=== PATIENT | female | born 1995 | race African-American/Black ===

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

== ENCOUNTER 2017-05-23 18:07 | Emergency (ER) | payer SELFPAY ==
[2017-05-23 18:13] VITALS: BMI 16.8
--- NOTE | 2017-05-23 18:55 | PDOC ---
History of Present Illness - General Chief Complaint: Pain Stated Complaint: STOMACH PAIN Time Seen by Provider: 05/23/17 18:54 - History of Present Illness Initial Comments: 21 year old previous healthy female presenting with some abdominal pain and nausea for the past few days. States that she had some light nausea and starting a few days back that eventually lead to some light epigastric pain. The epigastric pain is not associated with food or position and was recalcitrant to two Tylenol. Did not attempt any Maalox, peptobismal or antacids. Denies fevers, chills, nausea, vomiting, diarrhea, constipation, or any other sick symptoms or sick contacts. 05/23/17 19:06 Past History - Past Medical History Allergies/Adverse Reactions: Allergies Allergy/AdvReac Type Severity Reaction Status Date / Time No Known Allergies Allergy Verified 05/23/17 18:13 Home Medications: Ambulatory Orders No Home Medications 0 dose .ROUTE UTDICT 04/19/12 Mag Hydrox/Al Hydrox/Simeth [Mylanta Suspension -] 30 ml PO Q6H PRN #1 bottle Other medical history: NONE - Suicide/Smoking/Psychosocial Hx Smoking Status: No Smoking History: Never smoked Number of Cigarettes Smoked Daily: 0 Hx Alcohol Use: No Drug/Substance Use Hx: No Review of Systems - Review of Systems Constitutional: No: Chills, Diaphoresis HEENTM: No: Blurred Vision, Recent change in vision Respiratory: No: Cough Cardiac (ROS): No: Chest Pain ABD/GI: No: Nausea, Vomiting : No: Burning, Dysuria Musculoskeletal: No: Back Pain Integumentary: No: Bruising Neurological: No: Headache, Numbness *Physical Exam - Vital Signs Last Vital Signs Temp Pulse Resp BP Pulse Ox 99.5 F 105 H 20 139/54 100 05/23/17 18:10 05/23/17 18:10 05/23/17 18:10 05/23/17 18:10 05/23/17 18:10 - Physical Exam General Appearance: Yes: Nourished, Appropriately Dressed. No: Apparent Distress HEENT: positive: EOMI, BETH, Normal Voice Neck: positive: Trachea midline, Normal Thyroid, Supple. negative: Tender, Rigid Respiratory/Chest: positive: Lungs Clear, Normal Breath Sounds. negative: Chest Tender, Respiratory Distress, Accessory Muscle Use Cardiovascular: positive: Regular Rhythm, Regular Rate Gastrointestinal/Abdominal: positive: Normal Bowel Sounds, Flat, Soft. negative : Tender Musculoskeletal: positive: Normal Inspection. negative: CVA Tenderness Extremity: positive: Normal Capillary Refill, Normal Inspection, Normal Range of Motion Integumentary: positive: Normal Color, Dry, Warm Neurologic: positive: Fully Oriented, Alert, Normal Mood/Affect Medical Decision Making - Medical Decision Making 21 year old healthy female with vague abdominal discomfort and nausea over the past few days. U preg and UA negative for or any pathology. Patient feeling slightly better after maalox and pepcid. Will DC with over the counter medication instructions. 05/23/17 20:25 *DC/Admit/Observation/Transfer Diagnosis at time of Disposition: Nausea alone - Discharge Dispostion Disposition: HOME Condition at time of disposition: Improved Admit: No - Prescriptions Prescriptions: Mag Hydrox/Al Hydrox/Simeth [Mylanta Suspension -] 30 ml PO Q6H PRN #1 bottle PRN Reason: Nausea - Patient Instructions Additional Instructions: Your stomach problems are most likely due to mild irritation of the lining in your stomach. Please take maalox as needed and maintain a healthy diet. Please return to the ED if you have pain out of control despite use of tylenol and maalox or if you have trouble keeping food down for an extended period of time.
[2017-05-23] MEDS ORDERED: MAG HYDROX/AL HYDROX/SIMETH 30 ML UNIT-DOSE CUP PO ONE (19:03)
--- NOTE | 2017-05-23 19:07 | PDOC ---
Attending Attestation - Resident Resident Name: Shamar Hernandez - ED Attending Attestation I have performed the following: I have examined & evaluated the patient, The case was reviewed & discussed with the resident, I agree w/resident's findings & plan, Exceptions are as noted - HPI HPI: 21 yo F no significant past medical history presents with epigastric abdominal pain. She denies nausea, vomiting, diarrhea, fever. No known bad food ingestions. No previous similar symptoms. She did not take anything for her symptoms. - Physicial Exam PE: GENERAL: Awake, alert, and fully oriented, in no acute distress HEAD: No signs of trauma EYES: PERRLA, EOMI, sclera anicteric, conjunctiva clear ENT: Auricles normal inspection, hearing grossly normal, nares patent, oropharynx clear without exudates. Moist mucosa NECK: Normal ROM, supple, no lymphadenopathy, JVD, or masses LUNGS: Breath sounds equal, clear to auscultation bilaterally. No wheezes, and no crackles HEART: Regular rate and rhythm, normal S1 and S2, no murmurs, rubs or gallops ABDOMEN: Soft, +mild epigastric tenderness, normoactive bowel sounds. No guarding, no rebound. No masses EXTREMITIES: Normal range of motion, no edema. No clubbing or cyanosis. No cords, erythema, or tenderness NEUROLOGICAL: Cranial nerves II through XII grossly intact. Normal speech, normal gait SKIN: Warm, Dry, normal turgor, no rashes or lesions noted. - Medical Decision Making Pt presents with upper abdominal pain. No significant findings on exam, mild epigastric and mid-abdominal tenderness. Stable for DC home.
[2017-05-23 19:08] LABS: URINE APPEARANCE CLEAR; URINE BILIRUBIN NEGATIVE (NEGATIVE); URINE BLOOD NEGATIVE (NEGATIVE); URINE COLOR LTYELLOW; URINE GLUCOSE (UA) NEGATIVE (NEGATIVE); URINE KETONE NEGATIVE (NEGATIVE); URINE NITRITE NEGATIVE (NEGATIVE); URINE PROTEIN NEGATIVE (NEGATIVE); URINE UROBILINOGEN NEGATIVE mg/dL (0.2-1.0)
[2017-05-23] MEDS ORDERED: BISMUTH SUBSALICYLATE 262 MG TAB.CHEW PO ONE (19:08)
[2017-05-23] MEDS ORDERED: FAMOTIDINE 20 MG/50 ML IVPB 50 ML IVPB SCH ×2 (19:15→22:00)
[2017-05-23 19:21] VITALS: TEMP 99.1
[2017-05-23] MEDS ORDERED: MAG HYDROX/AL HYDROX/SIMETH 30 ML UNIT-DOSE CUP ONE (19:28)
[2017-05-23 21:18] VITALS: BP 102/64; PULSE 84
[2017-05-23 22:30] LABS: URINE LEUK ESTERASE Negative (NEGATIVE)
== END 2017-05-23 21:18 | disposition home or self-care (01) ==
LOC: JER 18:07
DX: R11.0 Nausea (principal)
CPT/HCPCS: 81003; 84703; 99282-25

== ENCOUNTER 2017-06-14 12:46 | Emergency (ER) | payer OTHER ==
[2017-06-14 13:03] VITALS: TEMP 98.3; BMI 15.6
[2017-06-14] MEDS ORDERED: RANITIDINE HCL 150 MG TABLET (FP) PO ONE (14:02)
[2017-06-14] MEDS ORDERED: BISMUTH SUBSALICYLATE 524 MG/30 ML UD PO ONE (14:02)
--- NOTE | 2017-06-14 14:03 | PDOC ---
History of Present Illness - General Chief Complaint: Chest Pain Stated Complaint: CHEST PAIN,BURPING Time Seen by Provider: 06/14/17 13:25 History Source: Patient Exam Limitations: No Limitations - History of Present Illness Initial Comments: 06/14/17 14:27 lightheadedness Past History - Past Medical History Allergies/Adverse Reactions: Allergies Allergy/AdvReac Type Severity Reaction Status Date / Time No Known Allergies Allergy Verified 06/05/17 16:57 Home Medications: Ambulatory Orders No Home Medications 0 dose .ROUTE UTDICT 04/19/12 COPD: No - Suicide/Smoking/Psychosocial Hx Smoking Status: No Smoking History: Never smoked Number of Cigarettes Smoked Daily: 0 Hx Alcohol Use: No Drug/Substance Use Hx: No *Physical Exam - Vital Signs Last Vital Signs Temp Pulse Resp BP Pulse Ox 98.3 F 104 H 19 118/86 99 06/14/17 13:00 06/14/17 13:00 06/14/17 13:00 06/14/17 13:00 06/14/17 13:00 *DC/Admit/Observation/Transfer - Referrals Referrals: Khari Post MD [Primary Care Provider] - - Patient Instructions - Post Discharge Activity
[2017-06-14] MEDS ORDERED: RANITIDINE HCL 150 MG TABLET (FP) ONE ×2 (14:10→16:21)
--- NOTE | 2017-06-14 16:44 | PDOC ---
History of Present Illness - General History Source: Patient Exam Limitations: No Limitations - History of Present Illness Initial Comments: 06/14/17 16:44 The patient is a 21 year old female, with no significant past medical history who presents to the emergency department with chest pain for about 2 days. The patient describes her pain as a sharp and tight sensation. She denies any LE pain. She denies any recent injury or trauma. She denies recent fevers, chills , headache or dizziness. She denies recent nausea, vomit, diarrhea or constipation. She denies recent dysuria, frequency, urgency or hematuria. She denies recent shortness of breath. No history or family history of blood clots. Allergies: NKA Past surgical history: None reported. Social history: Nonsmoker. Denies EtOH use and recreational drug use. PCP: <Uvaldo Ortega - Last Filed: 06/14/17 16:44> - General History Source: Patient Exam Limitations: No Limitations <Huyen Rosado - Last Filed: 06/14/17 18:32> - General Chief Complaint: Chest Pain Stated Complaint: CHEST PAIN,BURPING Time Seen by Provider: 06/14/17 13:25 Past History <Uvaldo Ortega - Last Filed: 06/14/17 16:44> - Past Medical History COPD: No - Suicide/Smoking/Psychosocial Hx Smoking Status: No Smoking History: Never smoked Number of Cigarettes Smoked Daily: 0 Hx Alcohol Use: No Drug/Substance Use Hx: No <Huyen Rosado - Last Filed: 06/14/17 18:32> - Past Medical History Allergies/Adverse Reactions: Allergies Allergy/AdvReac Type Severity Reaction Status Date / Time No Known Allergies Allergy Verified 06/05/17 16:57 Home Medications: Ambulatory Orders No Home Medications 0 dose .ROUTE UTDICT 04/19/12 Review of Systems - Review of Systems Able to Perform ROS?: Yes Comments:: 06/14/17 16:44 GENERAL/CONSTITUTIONAL: No fever or chills. No weakness. HEAD, EYES, EARS, NOSE AND THROAT: No change in vision. No ear pain or discharge. No sore throat. CARDIOVASCULAR: +chest pain No shortness of breath. RESPIRATORY: No cough, wheezing, or hemoptysis. GASTROINTESTINAL: No nausea, vomiting, diarrhea or constipation. GENITOURINARY: No dysuria, frequency, or change in urination. MUSCULOSKELETAL: No joint or muscle swelling or pain. No neck or back pain. SKIN: No rash NEUROLOGIC: No headache, vertigo, loss of consciousness, or change in strength/ sensation. ENDOCRINE: No increased thirst. No abnormal weight change. HEMATOLOGIC/LYMPHATIC: No anemia, easy bleeding, or history of blood clots. ALLERGIC/IMMUNOLOGIC: No hives or skin allergy. <Uvaldo Ortega - Last Filed: 06/14/17 16:44> *Physical Exam - Vital Signs Last Vital Signs Temp Pulse Resp BP Pulse Ox 98.3 F 104 H 19 118/86 99 06/14/17 13:00 06/14/17 13:00 06/14/17 13:00 06/14/17 13:00 06/14/17 13:00 - Physical Exam Comments: 06/14/17 16:44 GENERAL: Awake, alert, and fully oriented, in no acute distress HEAD: No signs of trauma EYES: PERRLA, EOMI, sclera anicteric, conjunctiva clear ENT: Auricles normal inspection, hearing grossly normal, nares patent, Moist mucosa NECK: Normal ROM, supple, JVD, or masses LUNGS: Breath sounds equal, clear to auscultation bilaterally. No wheezes, and no crackles HEART: Regular rate and rhythm, normal S1 and S2, no murmurs, rubs or gallops ABDOMEN: Soft, nontender, normoactive bowel sounds. No guarding, no rebound. No masses EXTREMITIES: Normal range of motion, no edema. No clubbing or cyanosis. No cords, erythema, or tenderness. 2+DP/PT pulses. NEUROLOGICAL: Normal speech, normal gait, moves all extremities equally. Speech clear. SKIN: Warm, Dry, normal turgor, no rashes or lesions noted. <Uvaldo Ortega - Last Filed: 06/14/17 16:44> - Vital Signs Last Vital Signs Temp Pulse Resp BP Pulse Ox 98.3 F 104 H 19 118/86 99 06/14/17 13:00 06/14/17 13:00 06/14/17 13:00 06/14/17 13:00 06/14/17 13:00 <Huyen Rosado - Last Filed: 06/14/17 18:32> Heart Score/ECG Review #1 General ECG Interpretation: Sinus Rhythm, Normal Rate, Normal Intervals, No acute ischemic changes (TWI III,k AVF< v3 - v6) <Huyen Rosado - Last Filed: 06/14/17 18:32> ED Treatment Course - LABORATORY CBC & Chemistry Diagram: 06/14/17 16:32 06/14/17 16:32 - Medications Given in the ED: ED Medications Discontinued Medications Generic Name Dose Route Start Last Admin Trade Name Freq PRN Reason Stop Dose Admin Bismuth Subsalicylate 524 mg 06/14/17 14:02 06/14/17 14:39 Pepto-Bismol - PO 06/14/17 14:03 Not Given ONCE ONE Ranitidine HCl 300 mg 06/14/17 14:02 06/14/17 14:13 Zantac - PO 06/14/17 14:03 300 mg ONCE ONE Administration <Uvaldo Ortega - Last Filed: 06/14/17 16:44> - LABORATORY CBC & Chemistry Diagram: 06/14/17 16:32 06/14/17 16:32 - RADIOLOGY Radiology Studies Ordered: Category Date Time Status CHEST PA & LAT [RAD] Stat Radiology 06/14/17 16:19 Ordered - Medications Given in the ED: ED Medications Discontinued Medications Generic Name Dose Route Start Last Admin Trade Name Freq PRN Reason Stop Dose Admin Bismuth Subsalicylate 524 mg 06/14/17 14:02 06/14/17 14:39 Pepto-Bismol - PO 06/14/17 14:03 Not Given ONCE ONE Ranitidine HCl 300 mg 06/14/17 14:02 06/14/17 14:13 Zantac - PO 06/14/17 14:03 300 mg ONCE ONE Administration <Huyen Rosado - Last Filed: 06/14/17 18:32> Medical Decision Making - Medical Decision Making 06/14/17 16:42 21-year-old female with no past medical history here today complaining of chest pain. Patient states symptoms started 3 days ago no fevers chills described as sharp and tight. Denies leg pain or cramping, however was seen in the ER for tingling sensation in her toes a few weeks ago. No history of blood clots, no family history of blood clots, no history of syncope or sudden family members with cardiac arrest. No cough, nausea, vomiting, fever, chills, did not take anything for pain prior to arrival. On exam patient is awake alert no acute distress lung exam is normal clear no reproducible tenderness. Cardiac exam is noted for regular rate and rhythm no murmurs rubs or gallops. Abdomen is soft and nontender. Extremities are warm and well perfused no edema no calf tenderness. Neuro alert and oriented 3. Skin warm and dry no rash Differential, costochondritis, pneumonia, pneumothorax, plan chest x-ray, EKG, labs, d-dimer and reassess 06/14/17 18:30 Patient labs are unremarkable including a negative d-dimer. Chest x-ray is normal. Will DC home to follow up with her occupational therapist home based <Huyen Rosado - Last Filed: 06/14/17 18:32> *DC/Admit/Observation/Transfer - Attestations Scribe Attestion: 06/14/17 16:44 Documentation prepared by Uvaldo Ortega, acting as medical office clerk for Huyen Rosado MD. <Uvaldo Ortega - Last Filed: 06/14/17 16:44> <Huyen Rosado - Last Filed: 06/14/17 18:32> Diagnosis at time of Disposition: Chest pain - Discharge Dispostion Disposition: HOME Condition at time of disposition: Improved - Referrals Referrals: Khari Post MD [Primary Care Provider] - - Patient Instructions Printed Discharge Instructions: DI for Atypical Chest Pain Additional Instructions: He should follow-up with your primary occupational therapist home based. He can take ibuprofen 400 mg every 8 hours as needed for pain. Return for any shortness of breath any problems or any concerns. All lab work was negative today including a blood test to evaluate her heart, a screening blood tests for blood clot, an EKG. And a chest x-ray was normal - Post Discharge Activity
[2017-06-14 16:48] LABS: BASOPHIL 0.4 % (0-2.0); EOSINOPHIL 0.4 % (0-4.5); MCH 30.2 pg (25.7-33.7); MCHC 33.4 g/dl (32.0-36.0); MEAN CELL VOLUME 90.4 fl (80-96); MEAN PLT VOLUME 6.9 fl (7.5-11.1); NEUTROPHILS 68.9 % (42.8-82.8); PLATELET COUNT 274 K/MM3 (134-434); RDW 12.6 % (11.6-15.6); WHITE BLOOD COUNT 5.9 K/mm3 (4.0-10.0)
[2017-06-14 17:25] LABS: ALBUMIN 3.8 g/dl (3.4-5.0); ANION GAP 8 (8-16); BILIRUBIN,TOTAL 0.4 mg/dL (0.2-1.0); CALCIUM 8.8 mg/dL (8.5-10.1); CO2 26 mmol/L (21-32); CREATININE 0.5 mg/dL (0.55-1.02); GLUCOSE,RANDOM 89 mg/dL (74-106); SGOT/AST 14 U/L (15-37); TOT PROT 7.1 g/dl (6.4-8.2)
[2017-06-14 17:34] LABS: ALK PHOS 50 U/L (45-117); CPK 63 IU/L (26-192); SGPT/ALT 23 U/L (12-78); TROPONIN I < 0.02 ng/ml (0.00-0.05)
[2017-06-14 18:48] VITALS: BP 108/62; PULSE 72
--- NOTE | 2017-06-15 10:05 | EKG ---
Test Reason : Blood Pressure : / mmHG Vent. Rate : 097 BPM Atrial Rate : 097 BPM P-R Int : 126 ms QRS Dur : 074 ms QT Int : 350 ms P-R-T Axes : 070 054 -36 degrees QTc Int : 444 ms NORMAL SINUS RHYTHM T WAVE ABNORMALITY, CONSIDER INFERIOR ISCHEMIA T WAVE ABNORMALITY, CONSIDER ANTERIOR ISCHEMIA ABNORMAL ECG NO PREVIOUS ECGS AVAILABLE Confirmed by LENNOX FONTANA MD ([id number]) on 06/15/2017 10:04:49 AM Referred By: Confirmed By:LENNOX FONTANA MD
== END 2017-06-14 18:51 | disposition home or self-care (01) ==
LOC: JER 12:46 → JERFT 12:46 → JER 18:51
DX: R07.89 Other chest pain (principal)
CPT/HCPCS: 36415; 71020-TC; 80053; 82550; 84484; 84703; 85025; 85379; 93005; 93010; 99282-25

== ENCOUNTER 2018-07-11 19:38 | Emergency (ER) | payer OTHER ==
[2018-07-11 20:02] VITALS: BP 141/84; PULSE 94; TEMP 98; BMI 16.0
[2018-07-11] MEDS ORDERED: ACETAMINOPHEN 325 MG TABLET (FP) PO ONE (20:03)
--- NOTE | 2018-07-11 20:06 | PDOC ---
Rapid Medical Evaluation Chief Complaint: Chronic pain Time Seen by Provider: 07/11/18 20:01 Medical Evaluation: Allergies Allergy/AdvReac Type Severity Reaction Status Date / Time No Known Allergies Allergy Verified 06/05/17 16:57 07/11/18 20:04 I have performed a brief in person evaluation of the patient 22 yo presents with R distal thigh pain for a week, after jumping a lot. 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 WIll order tylenol, femur xray R/O fracture Patient will proceed to the ED for further evaluation Discharge Disposition - Diagnosis Thigh pain Qualifiers: Laterality: right Qualified Code(s): M79.651 - Pain in right thigh - Referrals Referrals: Khari Post MD [Primary Care Provider] - - Patient Instructions - Post Discharge Activity
[2018-07-11] MEDS ORDERED: ACETAMINOPHEN 325 MG TABLET (FP) ONE (20:38)
--- NOTE | 2018-07-11 20:38 | PDOC ---
History of Present Illness - General Chief Complaint: Chronic pain Stated Complaint: Pain Time Seen by Provider: 07/11/18 20:01 History Source: Patient Exam Limitations: No Limitations - History of Present Illness Initial Comments: Patient is a 22-year-old female who was diagnosed with a lymphatic issue on her right lower extremity in 2014. She was advised to have a surgical consultation which she did not do. She states over the past 2 days she has had pain located in the right lateral lower femur. She denies injury or trauma. Denies rash. Denies recent unexplained weight loss. Denies fever. Denies any aggravating or relieving factors. No analgesics taken prior to arrival. 07/11/18 20:35 Past History - Travel Traveled outside of the country in the last 30 days: No Close contact w/someone who was outside of country & ill: No - Past Medical History Allergies/Adverse Reactions: Allergies Allergy/AdvReac Type Severity Reaction Status Date / Time No Known Allergies Allergy Verified 07/11/18 20:02 Home Medications: Ambulatory Orders No Home Medications 0 dose .ROUTE UTDICT 04/19/12 COPD: No - Suicide/Smoking/Psychosocial Hx Smoking Status: No Smoking History: Never smoked Have you smoked in the past 12 months: No Number of Cigarettes Smoked Daily: 0 Information on smoking cessation initiated: No Hx Alcohol Use: No Drug/Substance Use Hx: No Review of Systems - Review of Systems Able to Perform ROS?: Yes Constitutional: No: Chills, Fever, Unexplained wgt Loss All Other Systems: Reviewed and Negative *Physical Exam - Vital Signs Last Vital Signs Temp Pulse Resp BP Pulse Ox 98.0 F 94 H 16 141/84 100 07/11/18 20:00 07/11/18 20:00 07/11/18 20:00 07/11/18 20:00 07/11/18 20:00 - Physical Exam Comments: 07/11/18 20:37 Constitutional: VS stated, pt appears in no apparent distress; ambulated to examination room, steady gait noted. Skin: Warm and dry. Intact, no lesions or excoriations. Head: Normocephalic; atraumatic Eyes: conjunctiva pink without injection or discharge. Throat: Oropharynx with pink and moist mucosa. Lungs: Bilateral breath sounds clear upon auscultation. No adventitious breath sounds. Heart: Regular rate and rhythm, Musculoskeletal: Focused on the right femur. No defomrity. Able to bear weight. Pt has a 1 cm annular soft area superior to the lateral aspect of the right knee approx 10 cm. Neurologic: Awake, alert. Conversation fluent. Moderate Sedation - Procedure Monitoring Vital Signs: Procedure Monitoring Vital Signs Temperature 98.0 F 07/11/18 20:00 Pulse Rate 94 H 07/11/18 20:00 Respiratory Rate 16 07/11/18 20:00 Blood Pressure 141/84 07/11/18 20:00 O2 Sat by Pulse Oximetry (%) 100 07/11/18 20:00 ED Treatment Course - RADIOLOGY Radiology Studies Ordered: 07/11/18 20:38 Right femur xray was reviewed by myself as negative. *DC/Admit/Observation/Transfer Diagnosis at time of Disposition: Thigh pain Qualifiers: Laterality: right Qualified Code(s): M79.651 - Pain in right thigh - Discharge Dispostion Disposition: HOME Condition at time of disposition: Stable Decision to Admit order: No - Referrals Referrals: Khari Post MD [Primary Care Provider] - - Patient Instructions Printed Discharge Instructions: DI for Leg Pain Additional Instructions: Take Ibuprofen 400 mg every 6 hours. F/U with your PCP. - Post Discharge Activity
== END 2018-07-11 21:22 | disposition home or self-care (01) ==
LOC: JERFT 19:38
DX: M79.651 Pain in right thigh (principal)
CPT/HCPCS: 73552-TC-RT-FY; 99281-25